=== PATIENT | female | born 1990 | race Caucasian/White ===

== ENCOUNTER 2017-05-31 17:23 | Emergency (ER) | payer OTHER ==
[2017-05-31] MEDS ORDERED: PRED5TAB PO (21:37)
[2017-05-31] MEDS ORDERED: ALBU8HFA PO (21:37)
== END 2017-05-31 19:23 | disposition left against medical advice (07) ==
LOC: ER 17:24
DX: J45.909 Unspecified asthma, uncomplicated (principal); Z53.21 Procedure and treatment not carried out due to patient leaving prior to being seen by health care provider

== ENCOUNTER 2017-05-31 21:25 | Emergency (ER) | payer OTHER ==
[~2017-05-31] VITALS: Ht 167.6 cm; Wt 66.0 kg
[2017-05-31 21:29] VITALS: BP 108/67
[2017-05-31] MEDS ORDERED: ALBU8HFA PO (21:37)
[2017-05-31] MEDS ORDERED: PRED5TAB PO (21:37)
[2017-05-31] MEDS ORDERED: dexamethasone 4mg tablet PO ONE (21:40)
[2017-05-31] MEDS ORDERED: ipratropium/albuterol 3ml nebule NEB ONE (21:40)
== END 2017-05-31 22:13 | disposition home or self-care (01) ==
LOC: ER 21:25
DX: J45.901 Unspecified asthma with (acute) exacerbation (principal); J20.9 Acute bronchitis, unspecified; F17.210 Nicotine dependence, cigarettes, uncomplicated; Z79.899 Other long term (current) drug therapy
CPT/HCPCS: 94640; 94760; 99283; 99406; J8540

== ENCOUNTER 2017-06-30 02:15 | Emergency (ER) | payer MEDICAID ==
[~2017-06-30] VITALS: Ht 167.6 cm; Wt 65.7 kg
[~2017-06-30 02:15] MED LIST: ALBU8HFA PO; PRED5TAB PO
[2017-06-30 02:20] VITALS: BP 107/76
[2017-06-30] MEDS ORDERED: ipratropium/albuterol 3ml nebule NEB ONE (02:35)
[2017-06-30] MEDS ORDERED: predniSONE 20 mg tablet PO ONE (02:35)
[2017-06-30] MEDS ORDERED: ALBU8.5H8 IH (02:55)
[2017-06-30] MEDS ORDERED: PRED10TA23 PO (03:00)
== END 2017-06-30 03:03 | disposition home or self-care (01) ==
LOC: ER 02:16
DX: J45.901 Unspecified asthma with (acute) exacerbation (principal); F17.210 Nicotine dependence, cigarettes, uncomplicated; Z79.899 Other long term (current) drug therapy
CPT/HCPCS: 94640; 94760; 99283; J7512

== ENCOUNTER 2017-08-05 22:50 | Emergency (ER) | payer MEDICAID ==
[~2017-08-05] VITALS: Ht 167.6 cm; Wt 65.5 kg
[~2017-08-05 22:50] MED LIST changes: +ALBU8.5H8 IH; -ALBU8HFA PO
[2017-08-05 23:00] VITALS: BP 116/76
[2017-08-05] MEDS ORDERED: albuterol 2.5 MG/3 ML nebule NEB ONE (23:45)
[2017-08-05] MEDS ORDERED: ALBU6.7H INH (23:50)
== END 2017-08-06 00:17 | disposition home or self-care (01) ==
LOC: ER 22:51
DX: J45.901 Unspecified asthma with (acute) exacerbation (principal); Z79.899 Other long term (current) drug therapy
CPT/HCPCS: 94640; 94760; 99283

== ENCOUNTER 2017-08-30 00:09 | Emergency (ER) | payer MEDICAID ==
[~2017-08-30] VITALS: Ht 167.6 cm; Wt 64.8 kg
[~2017-08-30 00:09] MED LIST changes: +ALBU6.7H INH; +DOXY100C2 PO
[2017-08-30] MEDS ORDERED: ALBU8HFA PO (00:42)
[2017-08-30] MEDS ORDERED: BECL7.3A7 INH (00:42)
[2017-08-30 00:47] VITALS: BP 117/73
== END 2017-08-30 00:48 | disposition home or self-care (01) ==
LOC: ER 00:10
DX: J45.909 Unspecified asthma, uncomplicated (principal); F17.200 Nicotine dependence, unspecified, uncomplicated; Z79.899 Other long term (current) drug therapy
CPT/HCPCS: 99283

== ENCOUNTER 2022-01-05 10:03 | Emergency (ER) | payer MEDICAID ==
[~2022-01-05] VITALS: Ht 167.6 cm; Wt 59.0 kg
[~2022-01-05 10:03] MED LIST changes: -ALBU6.7H INH; +ALBU6.7H14 INH; +ALBU8.5H17 IH; -ALBU8.5H8 IH; +BECL7.3A7 INH; -DOXY100C2 PO
[2022-01-05 10:14] VITALS: BP 111/83
[2022-01-05] MEDS ORDERED: ipratropium/albuterol 3ml nebule NEB ONE (10:40)
[2022-01-05] MEDS ORDERED: AZIT250T PO (11:54)
[2022-01-05] MEDS ORDERED: PRED20TA PO (11:54)
[2022-01-05] MEDS ORDERED: ondansetron/PF 4mg/2ml inj IV ONE (12:00)
== END 2022-01-05 12:05 | disposition home or self-care (01) ==
LOC: ER 10:04
DX: J20.9 Acute bronchitis, unspecified (principal); R05.9 Cough, unspecified; J45.909 Unspecified asthma, uncomplicated; Z72.0 Tobacco use; Z98.890 Other specified postprocedural states; Z79.2 Long term (current) use of antibiotics; Z79.899 Other long term (current) drug therapy
CPT/HCPCS: 94640; 94760; 99283

== ENCOUNTER 2022-07-04 19:08 | Emergency (ER) | payer MEDICAID ==
[~2022-07-04] VITALS: Ht 167.6 cm; Wt 59.1 kg
[~2022-07-04 19:08] MED LIST changes: +ACET-2119 PO; +ALBU2.5V13 NEB; +ALBU8HFA PO; +FLUT100B3 INH; +PREN-55 PO
[2022-07-04 19:34] VITALS: BP 111/73
[2022-07-04] MEDS ORDERED: dexamethasone sod phosphate 10mg/ml inj PO STA (21:18)
[2022-07-04] MEDS ORDERED: METH4TAB3 PO (22:05)
[2022-07-04] MEDS ORDERED: IBUP-1984 PO (22:05)
== END 2022-07-04 22:12 | disposition home or self-care (01) ==
LOC: ER 19:08
DX: M54.50 Low back pain, unspecified (principal); J45.909 Unspecified asthma, uncomplicated
CPT/HCPCS: 72100; 99283; J1100

== ENCOUNTER 2023-01-30 10:38 | Emergency (ER) | payer MEDICAID ==
[~2023-01-30] VITALS: Ht 167.6 cm; Wt 62.7 kg
[~2023-01-30 10:38] MED LIST changes: +METH4TAB3 PO
[2023-01-30] MEDS ORDERED: CEFD300C3 PO (10:47)
[2023-01-30 10:52] VITALS: BP 105/72; PULSE 115; RESP 18; TEMP 98.6; O2SAT 97
== END 2023-01-30 10:53 | disposition home or self-care (01) ==
LOC: ER 10:38
DX: J20.9 Acute bronchitis, unspecified (principal); J45.909 Unspecified asthma, uncomplicated; Z79.899 Other long term (current) drug therapy
CPT/HCPCS: 99283